=== PATIENT | female | born 1985 | race Caucasian/White ===

== ENCOUNTER 2020-07-11 17:33 | Emergency (ER) | payer BC, SELFPAY ==
[2020-07-11 17:46] VITALS: BP 143/77; PULSE 85; RESP 18; TEMP 37.2; O2SAT 100
--- NOTE | 2020-07-11 17:48 | ED.GENADULT ---
HPI - General Adult General Chief complaint: Upper Respiratory Infection Stated complaint: sinus infection Time Seen by Provider: 07/11/20 17:48 Source: patient Mode of arrival: ambulatory Limitations: no limitations History of Present Illness HPI narrative: PATIENT PRESENTS WITH SINUS PRESSURE AND CONGESTION FOR THE PAST WEEK. MORE ON THE RIGHT. PATIENT IS TAKING ZYRTEC AND USING FLONASE FOR SYMPTOMS. complaint: sinus pressure for the past week Related Data Home Medications Medication Instructions Recorded Confirmed drospirenone-ethinyl estradiol 1 tablet DAILY 07/11/20 07/11/20 Allergies Allergy/AdvReac Type Severity Reaction Status Date / Time Penicillins Allergy Mild Verified 06/02/08 14:26 Review of Systems Review of Systems: Narrative: CONSTITUTIONAL: Denies fever, chills, or sweats. EYES: Denies visual changes, redness, or discharge. ENT: Denies rhinorrhea, congestion, sore throat, or otalgia.SINUS PRESSURE CARDIOVASCULAR: Denies chest pain, palpitations, or edema. RESPIRATORY: Denies cough or dyspnea. GASTROINTESTINAL: Denies abdominal pain, nausea, vomiting, or diarrhea. GENITOURINARY: Denies dysuria or hematuria. SKIN: Denies rash or itching. MUSCULOSKELETAL: Denies back pain, joint pain, or myalgia. NEUROLOGIC: Denies headache, numbness, or weakness. PSYCHIATRIC: Denies anxiety or depression. PMFSH Comments At time of signature, agree with nursing past medical, surgical, social and family history. There is no relevant family history pertinent to the presenting complaint Exam Narrative: Exam Narrative: GENERAL: Well-appearing, well-nourished, and in no acute distress. HEAD: Normocephalic, atraumatic. EYES: PERRLA and EOMI. ENT: Nares clear, no rhinorrhea or epistaxis. Mucous membranes moist. MODERATE AMOUNT OF MAXILLAYR SINUS PRESSURE AND TENDERNESS NECK: Supple. CHEST: Clear to auscultation. No respiratory distress. HEART: Regular rate and rhythm. No murmur heard. Normal peripheral pulses. ABDOMEN: Soft, nontender, nondistended, normal active bowel sounds. EXTREMITIES: Normal range of motion. No edema. SKIN: Warm, dry, no rash. NEURO: No focal deficits. Alert and oriented x3. Aynor Coma Scale Eye Opening: Spontaneous 4 Aynor Coma Scale Motor: Obeys Commands 6 Estrella Coma Scale Verbal: Oriented 5 Estrella Coma Scale Total 15 Course Vital Signs Vital signs: Vital Signs Temperature 37.2 C 07/11/20 17:46 Pulse Rate 85 07/11/20 17:46 Respiratory Rate 18 07/11/20 17:46 Blood Pressure 143/77 H 07/11/20 17:46 Pulse Oximetry 100 07/11/20 17:46 Temperature 37.2 C 07/11/20 17:46 Pulse Rate 85 07/11/20 17:46 Respiratory Rate 18 07/11/20 17:46 Blood Pressure 143/77 H 07/11/20 17:46 Pulse Oximetry 100 07/11/20 17:46 Please TAMARA schedule a followup visit with your personal physician for further evaluation and treatment. Including recheck and discussion of your blood pressure. If your symptoms persist, change or worsen significantly before you can contact your personal physician then please, without delay, go to the emergency department for further evaluation Medical Decision Making Vital Signs Vital Signs: Vital Signs Temperature 37.2 C 07/11/20 17:46 Pulse Rate 85 07/11/20 17:46 Respiratory Rate 18 07/11/20 17:46 Blood Pressure 143/77 H 07/11/20 17:46 Pulse Oximetry 100 07/11/20 17:46 Temperature 37.2 C 07/11/20 17:46 Pulse Rate 85 07/11/20 17:46 Respiratory Rate 18 07/11/20 17:46 Blood Pressure 143/77 H 07/11/20 17:46 Pulse Oximetry 100 07/11/20 17:46 Please TAMARA schedule a followup visit with your personal physician for further evaluation and treatment. Including recheck and discussion of your blood pressure. If your symptoms persist, change or worsen significantly before you can contact your personal physician then please, without delay, go to the emergency department for further evaluation Critical Care Time Cri
== END 2020-07-11 17:58 | disposition home or self-care (01) ==
PROVIDERS: Emergency Provider Nurse Practitioner Family; PCP Physician Assistant
DX: J32.9 Chronic sinusitis, unspecified (principal)
CPT/HCPCS: 99213; G0463

== ENCOUNTER 2020-07-22 14:39 | Outpatient (CLI) | payer BC, SELFPAY ==
--- NOTE | ~2020-07-22 | MR_ITS ---
EXAMINATION: MR brain IAC wo/w con DATE: 07/22/2020 16:01 INDICATION: Vertigo. TECHNIQUE: Magnetic resonance imaging (MRI) of the brain, brainstem, and internal auditory canals was performed without and with 18 mL MultiHance intravenous contrast. Sequences included sagittal and ax ial T1-weighted FSE, axial diffusion-weighted FS EPI, axial T2*-weighted GRE, axial T2-weighted FLAIR Propeller, axial T2-weighted Propeller, small rynym-tw-gnym coronal FIESTA, small kuilu-zk-amoi makenzie nal T1-weighted FSE, and small tyikq-kq-sifl axial T1-weighted SPGR. Postcontrast sequences included axial T1-weighted FSE, small rwiei-zk-vtqv coronal T1-weighted FSE, and small gywnj-bg-dwda axial T1- weighted SPGR. Apparent diffusion coefficient (ADC) maps were created. COMPARISON: None. FINDINGS: There is a small perihippocampal fissure cyst on the right. There is no intracranial hemorr karina, acute infarction, or abnormal intracranial mass lesion. The ventricles are normal in size. The internal auditory canals and inner ears are normal. There is a small left otomastoid effusion. The or bits are normal. The paranasal sinuses are clear. IMPRESSION: 1. Normal brain. 2. Small left otomastoid effusion. Reviewed, dictated and finalized at location A.
[2020-07-22 15:07] LABS: Estimated Glomerular Filt Rate > 60
== END 2020-07-22 14:40 | disposition home or self-care (01) ==
LOC: ANHIMG 14:43
PROVIDERS: PCP Physician Assistant; Visit Provider Physician Assistant
DX: R42 Dizziness and giddiness (principal)
CPT/HCPCS: 70553; A9577